=== PATIENT | female | born 1995 | race Caucasian/White ===

== ENCOUNTER 2017-12-03 15:41 | Emergency (ER) | payer MEDICAID, SELFPAY ==
[2017-12-03 16:48] VITALS: BP 139/66; PULSE 83; RESP 20; TEMP 37; O2SAT 98; BMI 25.8
--- NOTE | 2017-12-03 17:00 | HMH.EDUTC ---
[facility] [place] Disposition Clinical Impression: Nausea & vomiting Upper respiratory infection Qualifiers: URI type: unspecified URI Qualified Code(s): J06.9 - Acute upper respiratory infection, unspecified Disposition: Home, Self-Care Condition on Discharge: Good Instructions: DI for Nausea -- Adult, DI for Vomiting -- Adult Additional Instructions: * Monitor Temp. Tylenol and/or Ibuprofen as needed. ER if fever is no less than 101 despite alternating Tylenol and Ibuprofen * Encourage fluids, water, Gatorade, powerade, pedialyte if infant/toddler/or child * Warm salt water gargles for throat irritation *Warm fluids *Sore throat lozenges *Sleep elevated *humidifier or vaporizer Lots of rest Increase fluids, water, Gatorade, powerade Prescriptions: Azithromycin [Z-Valdez 250mg Tab] 250 mg PO UD DOSE PK #6 tab Ondansetron [Zofran 4mg ODT] 4 mg PO Q8H #20 tab.rapdis predniSONE [Prednisone 20mg Tab] 20 mg PO BID #10 tab Referrals: Shahbaz De La Torre MD [Primary Care Provider] - Time of Disposition: 18:40 Medical Decision Making - Medical Records Medical records reviewed: Yes: I reviewed the patient's medical records. Vital Signs: 12/03/17 16:48 Temperature 98.6 F Temperature Source Temporal Artery Scan Pulse Rate [Right Brachial] 83 Respiratory Rate 20 Blood Pressure [Right Arm] 139/66 Blood Pressure Mean [Right Arm] 90 Blood Pressure Source [Right Arm] Automatic Cuff Blood Pressure Position [Right Arm] Sitting 02 Sat by Pulse Oximetry 98 Oxygen Delivery Method Room Air - Lab Data Lab Results 12/03/17 16:46: Influenza Type A Ag Negative, Influenza Type B Ag Negative, Strep Scn [facility] Negative 12/03/17 16:59: [facility] Clinic Negative Orders (Tests/Meds): ED MEDICATIONS Generic Name Dose Route Start Last Admin Trade Name Freq PRN Reason Stop Dose Admin Sodium Chloride 500 mls @ 500 mls/hr 12/03/17 17:45 12/03/17 17:39 Sod Chloride 0.9% 500ml Bag IV 12/03/17 18:44 500 mls/hr .Q1H KIRK Administration Discontinued Medications Generic Name Dose Route Start Last Admin Trade Name Freq PRN Reason Stop Dose Admin Ondansetron HCl 4 mg 12/03/17 17:39 12/03/17 17:39 Zofran 4mg/2ml Vial IV 12/03/17 17:40 4 mg ONCE ONE Administration ORDERS Category Date Time Status Strep Screen Confirmation Stat Micro 12/03/17 16:46 Received - Bob Inquiry Pt receiving controlled substance: No Bob was queried for this patient: No - Reevaluation(s) Time: 18:05 (Patient still recieving IV bolus of Normal Saline will monitor) [facility] [place] HPI - General Stated complaint: vomiting Mode of Arrival: Family Vehicle Source of Information: Patient Limitations: No Limitations Description of Symptoms (Recalled from Triage Doc. by RN): PT HAS BEEN SICK FOR 2 WEEKS WITH VOMITING,FEVER, COUGH. HEENT Symptoms (Recalled from RN notes): No Resp Symptoms (Recalled from RN notes): Yes (COUGH) Skin Symptoms (Recalled from RN notes): No MS Symptoms (Recalled from RN notes): No Functional Status (Recalled from RN notes): NA - History of Present Illness Provider Complaint: Patient states that she has been having eppisodes of vomiting, for the last two weeks on and off State that she has not been drinking that much and feels like she may have a stomach virus State that she has been having cough also and losing her voice Not sure if she may or may not be State that she wanted to come in and get checked out because she was feeling tired - Related Data Previous Rx's Medication Instructions Recorded Azithromycin [Z-Valdez 250mg Tab] 250 mg PO UD DOSE PK #6 tab 12/03/17 Ondansetron [Zofran 4mg ODT] 4 mg PO Q8H #20 tab.rapdis 12/03/17 predniSONE [Prednisone 20mg 20 mg PO BID #10 tab 12/03/17 Tab] Allergies Allergy/AdvReac Type Severity Reaction Status Date / Time Penicillins Allergy Mild Verified 12/03/17 16:52 - Worker's Comp Is this a Worker's Comp ca
[2017-12-03 17:01] LABS: UTC Pregnancy Test, Urine Negative (Negative)
[2017-12-03 17:01] LABS: UTC Influenza A Antigen Negative (Negative); UTC Influenza B Antigen Negative (Negative); UTC Strep Screen (Rapid) Negative (Negative)
--- NOTE | 2017-12-03 17:10 | ED_ITS ---
[facility] [place] Disposition Clinical Impression: Nausea & vomiting Upper respiratory infection Qualifiers: URI type: unspecified URI Qualified Code(s): J06.9 - Acute upper respiratory infection, unspecified Disposition: Home, Self-Care Condition on Discharge: Good Instructions: DI for Nausea -- Adult, DI for Vomiting -- Adult Additional Instructions: * Monitor Temp. Tylenol and/or Ibuprofen as needed. ER if fever is no less than 101 despite alternating Tylenol and Ibuprofen * Encourage fluids, water, Gatorade, powerade, pedialyte if infant/toddler/or child * Warm salt water gargles for throat irritation *Warm fluids *Sore throat lozenges *Sleep elevated *humidifier or vaporizer Lots of rest Increase fluids, water, Gatorade, powerade Prescriptions: Azithromycin [Z-Valdez 250mg Tab] 250 mg PO UD DOSE PK #6 tab Ondansetron [Zofran 4mg ODT] 4 mg PO Q8H #20 tab.rapdis predniSONE [Prednisone 20mg Tab] 20 mg PO BID #10 tab Referrals: Shahbaz De La Torre MD [Primary Care Provider] - Time of Disposition: 18:40 Medical Decision Making - Medical Records Medical records reviewed: Yes: I reviewed the patient's medical records. Vital Signs: 12/03/17 16:48 Temperature 98.6 F Temperature Source Temporal Artery Scan Pulse Rate [Right Brachial] 83 Respiratory Rate 20 Blood Pressure [Right Arm] 139/66 Blood Pressure Mean [Right Arm] 90 Blood Pressure Source [Right Arm] Automatic Cuff Blood Pressure Position [Right Arm] Sitting 02 Sat by Pulse Oximetry 98 Oxygen Delivery Method Room Air - Lab Data Lab Results 12/03/17 16:46: Influenza Type A Ag Negative, Influenza Type B Ag Negative, Strep Scn [facility] Negative 12/03/17 16:59: [facility] Clinic Negative Orders (Tests/Meds): ED MEDICATIONS Generic Name Dose Route Start Last Admin Trade Name Freq PRN Reason Stop Dose Admin Sodium Chloride 500 mls @ 500 mls/hr 12/03/17 17:45 12/03/17 17:39 Sod Chloride 0.9% 500ml Bag IV 12/03/17 18:44 500 mls/hr .Q1H KIRK Administration Discontinued Medications Generic Name Dose Route Start Last Admin Trade Name Freq PRN Reason Stop Dose Admin Ondansetron HCl 4 mg 12/03/17 17:39 12/03/17 17:39 Zofran 4mg/2ml Vial IV 12/03/17 17:40 4 mg ONCE ONE Administration ORDERS Category Date Time Status Strep Screen Confirmation Stat Micro 12/03/17 16:46 Received - Bob Inquiry Pt receiving controlled substance: No Bob was queried for this patient: No - Reevaluation(s) Time: 18:05 (Patient still recieving IV bolus of Normal Saline will monitor) [facility] [place] - General Stated complaint: vomiting Mode of Arrival: Family Vehicle Source of Information: Patient Limitations: No Limitations Description of Symptoms (Recalled from Triage Doc. by RN): PT HAS BEEN SICK FOR 2 WEEKS WITH VOMITING,FEVER, COUGH. HEENT Symptoms (Recalled from RN notes): No Resp Symptoms (Recalled from RN notes): Yes (COUGH) Skin Symptoms (Recalled from RN notes): No MS Symptoms (Recalled from RN notes): No Functional Status (Recalled from RN notes): NA - History of Present Illness Provider Complaint: Patient states that she has been having eppisodes of vomiting, for the last two weeks on and off State that she has not been drinking that much and feels like she may
== END 2017-12-03 18:46 | disposition home or self-care (01) ==
PROVIDERS: Emergency Provider Nurse Practitioner; PCP Internal Medicine Adolescent Medicine
DX: R11.2 Nausea with vomiting, unspecified (principal); J06.9 Acute upper respiratory infection, unspecified; Z88.0 Allergy status to penicillin; Z79.52 Long term (current) use of systemic steroids; F17.210 Nicotine dependence, cigarettes, uncomplicated
CPT/HCPCS: 81025; 87804; 87880; 96374; 96375; 99203; 99282; J2405